=== PATIENT | female | born 1945 | race Caucasian/White ===

== ENCOUNTER 2022-07-28 10:13 | Day surgery (SDC) | payer MEDICARE, SELFPAY ==
--- NOTE | 2022-07-25 09:01 | EKG12_ITS ---
Test Reason : PREOP Blood Pressure : / mmHG Vent. Rate : 062 BPM Atrial Rate : 062 BPM P-R Int : 162 ms QRS Dur : 072 ms QT Int : 412 ms P-R-T Axes : 000 013 052 degrees QTc Int : 418 ms Normal sinus rhythm Normal ECG Confirmed by NOELLE WILDER, RADHA ([id number]), assistant editor ROSSY HODGES ([id number]) on 07/26/2022 11:20:17 AM Referred By: Fabrizio Bolaños Confirmed By:RADHA DRAKE MD
[2022-07-25 10:23] LABS: Hematocrit 46.3 % (37-47); Mean Corp Hgb Conc 30.2 g/dL (32-36); Mean Corpuscular Hgb 31.4 pg (27.0-32.0); Mean Corpuscular Volume 103.8 fL (81-99); Mean Platelet Vol. 10.2 fl (6.2-12.0); Platelet Count 169 K/mm3 (150-450); Red Blood Count 4.46 M/mm3 (4.2-5.4)
[2022-07-25 10:43] LABS: Hemoglobin A1c 6.1 % (3.8-5.6)
[2022-07-25 10:51] LABS: Anion Gap 9 (5-15); BUN 23 mg/dL (7-18); BUN/Creat Ratio 21.5 RATIO (10-20); Calcium,Total 8.7 mg/dL (8.5-10.1); Chloride 105 mmol/L (98-107); Creatinine, Serum 1.07 mg/dL (0.55-1.02); EST Glomerular Filtration Rate 53 mL/min (>60); Est Glom Filt Rate - Afr Amer 64 mL/min (>60); Glucose 88 mg/dL (74-106); Potassium 4.9 mmol/L (3.5-5.1); Sodium Level 142 mmol/L (136-145)
[2022-07-28 10:32] VITALS: BP 136/58; PULSE 66; RESP 16; TEMP 36.5; O2SAT 96; BMI 49.8
[2022-07-28] MEDS: Lactated Ringers 1,000 ML 15 ML IV (10:40)
[2022-07-28 10:55] LABS: Bedside Glucose 107 mg/dL (74-106)
[2022-07-28] MEDS: Sugammadex Sodium 200 MG/2 ML VIAL IV (14:35)
--- NOTE | 2022-07-28 14:35 | HP.PCM_ITS ---
HPI - General General Chief Complaint: Bladder tumor HPI Narrative ZAC ESTRADA, is a 77 F who presents for resection of a bladder tumor in the right lateral wall and also instillation of Mitomycin-C COUNT INCLUDES THE [facility] Medical History (Updated 07/21/22 @ 13:24 by Harmony Cooper) Ambulates with cane Anxiety Arthritis Back pain Bladder disease Cancer Cardiology follow-up encounter Diabetes Dietary restriction DVT (deep venous thrombosis) Gastric reflux High cholesterol History of edema History of hiatal hernia History of pain when walking History of stress test History of ulceration Hypertension Leg cramps Lives alone Low iron Non-smoker Pulmonary embolism Restless legs Shortness of breath on exertion Walker as ambulation aid Wears glasses Wears partial dentures Home Medications acetaminophen 500 mg tablet 1,000 mg PO BID 07/21/22 [History Last Taken 07/28/22] alprazolam 0.25 mg tablet (Xanax) 0.25 mg PO BID 07/21/22 [History Last Taken 07/28/22] apixaban 5 mg tablet (Eliquis) 5 mg PO BID 07/21/22 [History Last Taken 07/24/22] celecoxib 200 mg capsule (Celebrex) 200 mg PO BID 07/21/22 [History Last Taken Unknown] famotidine 40 mg tablet (Pepcid) 40 mg PO BID 07/21/22 [History Last Taken 07/28/22] ferrous sulfate 325 mg (65 mg iron) tablet (FeroSul) 325 mg PO BID 07/21/22 [Hi story Last Taken Unknown] glimepiride 4 mg tablet 4 mg PO BID 07/21/22 [History Last Taken Unknown] lisinopril 2.5 mg tablet 2.5 mg PO DAILY 07/21/22 [History Last Taken 07/28/22] metoprolol succinate 100 mg tablet,extended release 24 hr (Toprol XL) 100 mg PO DAILY 07/21/22 [History Last Taken 07/28/22] omeprazole 40 mg capsule,delayed release 40 mg PO DAILY 07/21/22 [History Last Taken 07/28/22] oxybutynin chloride 10 mg tablet,extended release 24 hr 10 mg PO DAILY 07/21/22 [History Last Taken Unknown] simvastatin 10 mg tablet 10 mg PO QHS 07/21/22 [History Last Taken Unknown] ciprofloxacin HCl 500 mg tablet (Cipro) 500 mg PO BID #10 tabs 07/28/22 [Rx Last Taken Unknown] Allergy/AdvReac Type Severity Reaction Status Date / Time fluticasone AdvReac HOARSNESS Verified 07/28/22 10:30 [From Advair Diskus] OF VOICE salmeterol AdvReac HOARSNESS Verified 07/28/22 10:30 [From Advair Diskus] OF VOICE Surgical History (Updated 07/21/22 @ 13:24 by Harmony Cooper) History of esophagogastroduodenoscopy (EGD) History of lobectomy of lung History of partial hysterectomy Hx of appendectomy Hx of arthroscopic knee surgery Hx of left cataract extraction Hx of right cataract extraction Social History Smoking Status: Never smoker Vital Signs Vital Signs Vital Signs: 07/28/22 10:32 07/28/22 10:32 Temperature 97.7 F L Temperature Source Temporal Pulse Rate 66 Respiratory Rate 16 Respiratory Pattern Normal Blood Pressure 136/58 H Blood Pressure Mean 84 Blood Pressure Source Monitor Blood Pressure Position Semi-Fowlers Blood Pressure Location Left Arm Pulse Ox 96 Oxygen Delivery Method Room Air Weight Weight: 119.6 kg Body Mass Index (BMI) 49.8 Results Lab / Micro Data Result Diagrams: 07/25/22 09:13 07/25/22 09:13 Labs: Laboratory Results - last 24 hr 07/28/22 10:34: POC Glucose 107 H
--- NOTE | 2022-07-28 14:36 | DCINST_ITS ---
Discharge Instructions Diet Discharge Diet: No restrictions, Light diet - advance as tolerated and Soft diet Activity Discharge Activity: Return to Normal Activity Follow Up Care Please Follow Up With: Fabrizio Bolaños MD When: 2 to 3 weeks for follow-up call for an appointment Test Results: Test results from this visit will be discussed in further detail at your follow- up appointment, if applicable. Discharge Plan Admission Primary Reason for Your Visit: resection of non invasive bladder tumor Attending Provider: Fabrizio Bolaños Primary Care Provider: Ke Martínez Consulting Providers: Aj Montes Discharge Orders/Prescriptions Prescriptions: New ciprofloxacin HCl [Cipro] 500 mg tablet 500 mg PO BID Qty: 10 0RF Continued celecoxib [Celebrex] 200 mg Capsule 200 mg PO BID oxybutynin chloride 10 mg Tablet Extended Release 24hr 10 mg PO DAILY famotidine [Pepcid] 40 mg Tablet 40 mg PO BID metoprolol succinate [Toprol XL] 100 mg Tablet Extended Release 24 Hr 100 mg PO DAILY simvastatin 10 mg Tablet 10 mg PO QHS omeprazole 40 mg Capsule,Delayed Release(Dr/Ec) 40 mg PO DAILY acetaminophen 500 mg Tablet 1,000 mg PO BID alprazolam [Xanax] 0.25 mg Tablet 0.25 mg PO BID ferrous sulfate [FeroSul] 325 mg (65 mg iron) Tablet 325 mg PO BID glimepiride 4 mg Tablet 4 mg PO BID lisinopril 2.5 mg Tablet 2.5 mg PO DAILY Eliquis 5 mg Tablet 5 mg PO BID Referrals / Follow Up: Ke Martínez DO [Primary Care Provider] - Fabrizio Bolaños MD [Med Staff - Active Staff] - Disposition Disposition (needs filled in before D/C Order can be placed): Home, Self Care
--- NOTE | 2022-07-28 14:36 | PCM.OPRPT ---
Report of Operation Date of Procedure: 07/28/22 Pre-Operative Diagnosis: Bladder tumor involving the right lateral wall Post-Operative Diagnosis: The same Surgery/Procedure Performed:: Transurethral section of bladder tumor and instillation of Mitomycin-C Description of Surgical Findings:: Patient presented to the hospital for treatment of a tumor that was found in the bladder with a bladder tumor in the right lateral wall. Patient understands is possible it may not be able to resect the entire tumor. Patient also understands is possible that the patient may need multiple procedures or more invasive procedures to cure this cancer. Patient was taken back to the operating room after smooth induction of anesthesia the patient was placed supine on the table. The patient was placed in dorsolithotomy position. The urethra and genitals prepped and draped in usual sterile fashion. I went into the bladder with a 30 degree lens and a cystoscope was performed and identified the tumor the tumors which was about 3 to 4 centimeters in size and occupying mostly the right lateral wall of the bladder. I then switched over to the 70 degree lens and inspected the rest of the bladder with a 70 degree lens to make sure there is no other tumors in the bladder and to identify all the tumor locations. The right and left ureteral orifice were identified. The tumor was not involved in the ureteral orifices. I then placed the Olympus bipolar resectoscope with a large loop into the bladder. I then started resected the tumor and started superficially shaving small little pieces working my way to the base of the tumor. As I went along I then cauterize any bleeders that were encountered during the resection. The tumor pieces were then flushed out of the bladder and continued resecting the tumor until finally I got down to the base of the tumor and the muscle of the bladder was then identified a small little bit of muscle was taken with the resection. The Ellik was used then to evacuate all the tumor pieces out of the bladder. I then cauterized extensively the tumor base and also circumferentially around where the tumor was. Again we made sure to evacuate all the pieces out the bladder. I made sure there was no more bleeding from the base of the bladder and then over the tumor pieces were then evacuated out and sent off as a specimen. After the resection of the entire tumor was completed then treatment with Mitomycin-C was performed. We then placed the catheter in the bladder and the patient was taken back to the PACU in stable condition. Surgeon: Fabrizio Bolaños Type of Anesthesia: General Drains: none Admit VTE Documentation VTE Present on Admission: No
[2022-07-28 14:53] VITALS: BP 129/62; BP 136/58; PULSE 82; RESP 16; TEMP 36.6; O2SAT 99
[2022-07-28 15:00] VITALS: BP 128/69; BP 136/58; PULSE 57; RESP 16; O2SAT 94
[2022-07-28 15:15] VITALS: BP 131/53; BP 136/58; PULSE 65; RESP 16; O2SAT 94
[2022-07-28] MEDS: Ketorolac 15 MG/ML Vial IV (15:17)
[2022-07-28] MEDS: Lactated Ringers 1,000 ML 75 ML IV (15:17)
[2022-07-28 15:30] VITALS: BP 124/53; BP 136/58; PULSE 65; RESP 16; TEMP 36.5; O2SAT 94
[2022-07-28 16:20] VITALS: BP 136/58; BP 141/77; PULSE 85; RESP 16; TEMP 36.2; O2SAT 92
== END 2022-07-28 16:40 | disposition home or self-care (01) ==
LOC: SDC 10:14 → AC 10:14
PROVIDERS: Anesthesiology; PCP Family Medicine Hospice and Palliative Medicine; Referring Provider Urology; Visit Provider Urology
PROC: 0T5B8ZZ Destruction of Bladder, Via Natural or Artificial Opening Endoscopic (ICD-10-PCS; CPT 51720; principal; 2022-07-28 12:10)
DX: D49.4 Neoplasm of unspecified behavior of bladder (principal); E11.9 Type 2 diabetes mellitus without complications; F41.9 Anxiety disorder, unspecified; Z86.718 Personal history of other venous thrombosis and embolism; E78.00 Pure hypercholesterolemia, unspecified; K21.9 Gastro-esophageal reflux disease without esophagitis; I10 Essential (primary) hypertension; Z86.711 Personal history of pulmonary embolism; G25.81 Restless legs syndrome; Z79.899 Other long term (current) drug therapy; Z79.01 Long term (current) use of anticoagulants; Z79.84 Long term (current) use of oral hypoglycemic drugs
CPT/HCPCS: 52250; 36415; 80048; 82962; 83036; 85027; 93005; J7120; J2310; J2405; J3490; J9280